=== PATIENT | male | born 1945 | race Caucasian/White ===

== ENCOUNTER 2017-05-02 07:09 | Day surgery (SDC) | payer OTHER ==
[~2017-05-02] VITALS: Ht 177.8 cm; Wt 99.8 kg
[~2017-05-02 07:09] MED LIST: AMLODIPINE BESY10 MG PO; AMLODIPINE BESYL5 MG PO; ASPIR-LOW81 MG PO; CLONAZEPAM1 MG PO; CYANOCOBALAM1000 MCG PO; GLUCOPHAGE XR750 MG PO; LOSARTAN POTAS100 MG PO; METFORMIN HCL1000 MG PO; METFORMIN HCL750 MG PO; PANTOPRAZOLE SO40 MG PO; PREDNISONE20 MG PO; ROXICODONE5 MG PO; VITAMIN D-32000 UNI2 PO; VITAMIN D35000 UNIT PO
[2017-05-02 08:36] VITALS: BP 151/96
[2017-05-02 12:00] VITALS: BP 124/78
[2017-05-02 13:10] VITALS: BP 125/74
== END 2017-05-02 13:15 | disposition home or self-care (01) ==
LOC: SDC 07:09
PROVIDERS: Orthopaedic Surgery
PROC: 0RBJ4ZZ Excision of Right Shoulder Joint, Percutaneous Endoscopic Approach (ICD-10-PCS; principal; 2017-05-02)
DX: M75.41 Impingement syndrome of right shoulder (principal); I10 Essential (primary) hypertension; E11.9 Type 2 diabetes mellitus without complications; Z86.711 Personal history of pulmonary embolism; Z86.718 Personal history of other venous thrombosis and embolism; Z79.82 Long term (current) use of aspirin; Z79.84 Long term (current) use of oral hypoglycemic drugs; Z82.49 Family history of ischemic heart disease and other diseases of the circulatory system
CPT/HCPCS: 82948; J0171; J0690; J1170; J2250; J2795; J3010